=== PATIENT | female | born 1940 | race Caucasian/White ===

== ENCOUNTER → 2016-11-14 | Outpatient (CLI) | payer MEDICARE, OTHER ==
[~2016-11-14] MED LIST: /WARF25TA; ACET65TA; ALEVE; ALLE25CA; AVALIDE; CENTRUM SILVER; DARV100T; GLYBURIDE/METFORMIN; INSULANT; PERC5TAB8; TYLENOL PM; ZEBE5TAB; ZOCO20TA; [UNRECOGNIZED DRUG - CODE]
--- NOTE | 2016-11-14 14:42 | REPMRS ---
Patient History The patient states she has not had a clinical breast exam in over a year. Patient is postmenopausal. No known family history of cancer. Digital Woman Screen Mammo: November 14, 2016 - Exam #: [id number] Bilateral CC and MLO view(s) were taken. Technologist: Wendy Mancilla, Technologist Prior study comparison: October 15, 2015, digital woman screen mammo performed at [facility] to [facility]. September 09, 2014, digital woman screen mammo performed at [facility] to [facility]. FINDINGS: There are scattered fibroglandular densities. There has been no change in the appearance of the mammogram from the prior studies. There is a mild amount of residual fibroglandular tissue which is fairly symmetric. There is no interval development of dominant mass, architectural distortion, or clustered microcalcification suggestive of malignancy. ASSESSMENT: BI-RADS/ACR category 1 mammogram. Negative. Recommendation Routine screening mammogram in 1 year (for women over age 40). This mammogram was interpreted with the aid of an FDA-approved computer-aided dectection system. Electronically Signed By: Dar Valdez MD 11/14/16 [id number]
== END ==
LOC: M WHC 13:58
PROVIDERS: ATTEND Family Medicine
DX: Z12.31 Encounter for screening mammogram for malignant neoplasm of breast (principal)

== ENCOUNTER → 2017-10-30 | Outpatient (CLI) | payer MEDICARE, OTHER | LOC: M WHC 10:28 | DX: Z12.31 Encounter for screening mammogram for malignant neoplasm of breast (principal) | CPT/HCPCS: 77067 ==

== ENCOUNTER → 2018-08-27 | Outpatient (REF) | payer MEDICARE, OTHER ==
[~2018-08-27] MED LIST changes: -/WARF25TA; +COUM1TAB18
[2018-08-27 19:34] LABS: MALB URINE SIEMENS 35.7 MG/L
== END ==
LOC: M LAB REF 16:47
PROVIDERS: ATTEND Family Medicine
DX: E78.00 Pure hypercholesterolemia, unspecified (principal); E11.65 Type 2 diabetes mellitus with hyperglycemia

== ENCOUNTER → 2018-10-31 | Outpatient (CLI) | payer MEDICARE, OTHER ==
--- NOTE | 2018-10-31 10:10 | REPMRS ---
Patient History The patient states she has not had a clinical breast exam in over a year. Patient is postmenopausal and has history of other cancer at age 77. No known family history of cancer. 3D TOMOSYNTHESIS WAS PERFORMED. [facility] lifetime risk for breast cancer is 2.3%. Digital Woman Screen Mammo: October 31, 2018 - Exam #: [id number] Bilateral CC and MLO view(s) were taken. Technologist: Leola South Technologist Prior study comparison: October 30, 2017, bilateral digital woman screen mammo performed at [email or web address] [email or web address]. November 14, 2016, digital woman screen mammo performed at [email or web address] to [email or web address]. FINDINGS: There are scattered fibroglandular densities. There has been no change in the appearance of the mammogram from the prior studies. There is a mild amount of residual fibroglandular tissue which is fairly symmetric. There is no interval development of dominant mass, architectural distortion, or clustered microcalcification suggestive of malignancy. Assessment: BI-RADS/ACR category 1 mammogram. Negative Mammogram. Recommendation Routine screening mammogram in 1 year (for women over age 40). This mammogram was interpreted with the aid of an FDA-approved computer-aided dectection system. Electronically Signed By: Dar Valdez MD 10/31/18 [id number]
== END ==
LOC: M WHC 08:57
PROVIDERS: ATTEND Family Medicine
DX: Z12.31 Encounter for screening mammogram for malignant neoplasm of breast (principal); Z85.9 Personal history of malignant neoplasm, unspecified

== ENCOUNTER → 2019-11-29 | Outpatient (CLI) | payer MEDICARE, OTHER ==
--- NOTE | 2019-11-29 11:41 | REPMRS ---
Patient History The patient states she has not had a clinical breast exam in over a year. Patient is postmenopausal and has history of skin cancer at age 77. No known family history of cancer. No Hormone Replacement Therapy 3D TOMOSYNTHESIS WAS PERFORMED. [facility] for [facility] cancer is 2.0%. VOLVERONICAA KINGS B. Digital Woman Screen Mammo: November 29, 2019 - Exam #: [id number] Bilateral CC and MLO view(s) were taken. Technologist: Lawanda Little, Technologist Prior study comparison: October 31, 2018, bilateral digital woman screen mammo performed at [facility]. October 30, 2017, bilateral digital woman screen mammo performed at [facility]. FINDINGS: There are scattered fibroglandular densities. There has been no change in the appearance of the mammogram from the prior studies. There is a mild amount of residual fibroglandular tissue which is fairly symmetric. There is no interval development of dominant mass, architectural distortion, or clustered microcalcification suggestive of malignancy. Assessment: BI-RADS/ACR category 1 mammogram. Negative Mammogram. Recommendation Routine screening mammogram in 1 year (for women over age 40). This mammogram was interpreted with the aid of an FDA-approved computer-aided dectection system. Electronically Signed By: Dar Valdez MD 11/29/19 [id number]
== END ==
LOC: M WHC 10:24
PROVIDERS: ATTEND Family Medicine
DX: Z12.31 Encounter for screening mammogram for malignant neoplasm of breast (principal); Z85.828 Personal history of other malignant neoplasm of skin

== ENCOUNTER → 2020-12-04 | Outpatient (CLI) | payer MEDICARE, OTHER ==
--- NOTE | 2020-12-04 11:39 | DEXAMM ---
INDICATION: DISORDER OF BONE. COMPARISON: 05/27/2013, 06/03/2004. TECHNIQUE: Bone density was measured using dual-energy x-ray absorptiometry (DEXA). FINDINGS: AP SPINE L1-L4 BMD 1.734 g/cm2 Young Adult T-Score 4.4 Age Matched Z-Score 6.2. LT FEMUR, TOTAL BMD 0.975 g/cm2 Young Adult T-Score -0.3 Age Matched Z-Score 1.7. LT NECK BMD 0.870 g/cm2 Young Adult T-Score -1.2 Age Matched Z-Score 0.9. IMPRESSION: There is normal bone density of the spine. There is low bone density of the left hip. The density of the spine has increased 25.0% since the initial exam on 06/03/2004. The density of the spine increased 15.3% since most recent exam on 05/27/2013. The density of the left hip has decreased 6.5% since initial exam on 06/03/2004. The density of the left hip has decreased 0.6% since most recent exam on 05/27/2013. FOLLOW-UP: Recommendation for the next bone density exam: 2 years. <Electronically signed by Dar Valdez > 12/04/20 [id number]
== END ==
LOC: M WHC 09:53
PROVIDERS: ATTEND Family Medicine
DX: M85.852 Other specified disorders of bone density and structure, left thigh (principal)

== ENCOUNTER → 2020-12-22 | Outpatient (CLI) | payer MEDICARE, OTHER ==
--- NOTE | 2020-12-22 11:18 | REP ---
INDICATION: SCREEN MAMMO. COMPARISON: Multiple the latest 11/29/2019 TECHNIQUE: Digital screening mammography carried out bilaterally in the CC and MLO projections using both 2D and 3D modalities and compared to the prior exams. By history, the patient has no complaints of a palpable breast abnormality or other significant breast complaints. FINDINGS: The breasts are unchanged in size and shape. There are no isela soft tissue densities or spiculated masses. There is no internal architectural distortion. There is no skin thickening or nipple retraction. In the left breast upper outer quadrant there are new curvilinear calcifications and having almost an eggshell appearance, however, additional singular calcifications are also identified. The aforementioned calcifications are superimposed on the CC view. This could potentially obscure the singular calcifications seen on the MLO view. The Volpara volumetric breast density pattern is b. IMPRESSION: BIRADS/ACR category 0 mammogram. New left breast calcifications as described above for which diagnostic digital magnified CC and true lateral views of the left breast are recommended. This patient's Tyrer-Cuzick lifetime breast cancer risk assessment score is 1.7%. This mammogram was interpreted with the aid of an FDA-approved computer-aided detection system. The patient states she had a clinical breast exam in over a year. The patient letter being requested is M0. RECOMMENDATION: As above <Electronically signed by Layton Orosco > 12/22/20 [id number]
== END ==
LOC: M WHC 10:24
PROVIDERS: ATTEND Family Medicine
DX: Z12.31 Encounter for screening mammogram for malignant neoplasm of breast (principal); R92.1 Mammographic calcification found on diagnostic imaging of breast

== ENCOUNTER → 2021-01-04 | Outpatient (CLI) | payer MEDICARE, OTHER ==
--- NOTE | 2021-01-04 08:48 | REP ---
INDICATION: LEFT BREAST ADD VIEWS CALCS. COMPARISON: Multiple screening mammograms the most recent of 12/22/2020. TECHNIQUE: 2D focal compression magnification of the left breast in the CC and MLO orientations and a 3D MLO view of the left breast were obtained. FINDINGS: The group of calcifications seen in the anterior 3rd of the left breast, are shown to be benign arcuate calcifications, likely fat necrosis. The Volpara volumetric breast density pattern is b, there are scattered areas of fibroglandular density.. IMPRESSION: BIRADS/ACR category 2: Benign finding. This mammogram was interpreted with the aid of an FDA-approved computer-aided detection system. The patient letter being requested is M2. RECOMMENDATION: Repeat screening mammography recommended 1 year (for women over 40). <Electronically signed by Bahman Sheffield > 01/04/21 [id number]
== END ==
LOC: M WHC 08:00
PROVIDERS: ATTEND Family Medicine
DX: R92.1 Mammographic calcification found on diagnostic imaging of breast (principal)
CPT/HCPCS: 77065; G0279

== ENCOUNTER → 2022-03-21 | Outpatient (CLI) | payer MEDICARE, OTHER | LOC: M WHC 10:17 | PROVIDERS: ATTEND Family Medicine | DX: Z12.31 Encounter for screening mammogram for malignant neoplasm of breast (principal) ==

== ENCOUNTER → 2023-03-22 | Outpatient (CLI) | payer MEDICARE, OTHER | LOC: M WHC 11:35 | PROVIDERS: ATTEND Family Medicine | DX: Z12.31 Encounter for screening mammogram for malignant neoplasm of breast (principal) ==

== ENCOUNTER → 2024-03-28 | Outpatient (CLI) | payer MEDICARE, OTHER | LOC: M WHC 12:23 | PROVIDERS: ATTEND Family Medicine | DX: Z12.31 Encounter for screening mammogram for malignant neoplasm of breast (principal); R92.313 Mammographic fatty tissue density, bilateral breasts ==